=== PATIENT | male | born 1935 | race Caucasian/White ===

== ENCOUNTER 2021-07-28 14:05 | Emergency (ER) | payer MEDICARE, OTHER, SELFPAY ==
[~2021-07-28] VITALS: Ht 152.4 cm; Wt 43.1 kg
--- NOTE | 2021-07-28 14:07 | NUR ---
Placed in room 8 . Placed on shine worker, blood pressure machine and pulse oximeter. To gown for exam. Side rails up. Report given to DARI Mccarthy.
--- NOTE | 2021-07-28 14:10 | NUR ---
PT BIBA FROM [facility] FOR FEVER, RESPIRATORY DISTRESS. PER EMS PT WAS FOUND TO BE SATTING [place] 77%ON RA AIR ON SCENE AND MORE ALTERED THAN USUAL. PT WAS PLACED ON NRB @ 15LPM, ARRIVES @ 100%, 99.4 RECTAL TEMP, OTHER V/S STABLE. PT IS NONVERBAL UPON ARRIVAL, HOT TO TOUCH AND DIAPHROETIC. PT ARRIVES WITH #18G TO LAC PATENT AND NS BOLUS RUNNING.
[2021-07-28 14:13] VITALS: BP_SYST 146
--- NOTE | 2021-07-28 14:26 | NUR ---
# 20 gauge angiocath placed to LFA. Use of asceptic technique. Opsite placed over site. Blood return noted. Blood for lab drawn from site. Flushed with 10 cc of normal saline. No evidence of infiltration noted. Patient tolerated well.
--- NOTE | 2021-07-28 14:38 | NUR ---
RT AT THE BEDSIDE FOR ABG
[2021-07-28] MEDS ORDERED: IPRA4AER INH (14:41)
[2021-07-28] MEDS ORDERED: TROS20TA2 PO (14:41)
[2021-07-28] MEDS ORDERED: ACET325T53 PO (14:41)
[2021-07-28] MEDS ORDERED: CARB1CAP3 PO (14:41)
[2021-07-28] MEDS ORDERED: ONDA4TAB5 PO (14:41)
[2021-07-28] MEDS ORDERED: GABA-529 PO (14:41)
[2021-07-28] MEDS ORDERED: FINA5TAB3 PO (14:41)
[2021-07-28] MEDS ORDERED: FOLI0.8T42 PO (14:41)
[2021-07-28] MEDS ORDERED: ACET325T PO (14:41)
[2021-07-28] MEDS ORDERED: DOCU-144 PO (14:41)
[2021-07-28] MEDS ORDERED: DONE10TA44 PO (14:41)
[2021-07-28] MEDS ORDERED: ENTA200T2 PO (14:41)
[2021-07-28] MEDS ORDERED: ATRO5DRP PO (14:41)
[2021-07-28] MEDS ORDERED: HYT1 PO (14:41)
--- NOTE | 2021-07-28 14:41 | NUR ---
Medication reconciliation completed with information provided by [facility]. Any prior medication reconciliation on file was reviewed and corrected.
[2021-07-28] MEDS ORDERED: FERR-69 PO (14:47)
--- NOTE | 2021-07-28 14:49 | NUR ---
patient swabbed for covid. sample brought to lab.
[2021-07-28] MEDS ORDERED: NACL 0.9% 1,000 ML IV ONE (15:00)
[2021-07-28] MEDS ORDERED: NS 500 ML IV ONE (15:00)
[2021-07-28] MEDS ORDERED: PIPERACILLIN/TAZO 3.38 GM in D5W 50 ML IV ONE (15:00)
[2021-07-28] MEDS ORDERED: VANCOMYCIN HCL 1,000 MG in D5W 250 ML IV ONE (15:00)
[2021-07-28] MEDS ORDERED: PIPERACILLIN/TAZOBACTAM 3.375 GM/VIAL (ZOSYN) IV ONE (15:13)
[2021-07-28 15:28] LABS: BASOPHILS % (AUTO) 0.1 % (0.0-2.0); HEMATOCRIT 35.3 % (36-54); HEMOGLOBIN 11.9 g/dL (14.0-18.0); LYMPHOCYTES # (AUTO) 1.2 K/uL (1.0-5.5); LYMPHOCYTES % (AUTO) 11.4 % (20.5-51.5); MEAN CORPUSCULAR HEMOGLOBIN 28 pg (27-31); MEAN CORPUSCULAR HGB CONC 34 % (32-36); MEAN CORPUSCULAR VOLUME 83 fL (79.0-98.0); MONOCYTES # (AUTO) 0.6 K/uL (0.0-1.0); MONOCYTES % (AUTO) 5.4 % (1.7-9.3); NEUTROPHILS # (AUTO) 9.1 K/uL (1.8-7.7); NEUTROPHILS % (AUTO) 83.1 % (40.0-70.0); PLATELET COUNT (AUTO) 314 K/uL (130-430); RED BLOOD CELL COUNT(AUTO) 4.25 MIL/uL (4.2-6.2); RED CELL DISTRIBUTION WIDTH 17.3 % (9.0-15.0); WHITE BLOOD COUNT (AUTO) 10.9 K/uL (4.8-10.8)
[2021-07-28 15:38] LABS: ANION GAP 12 (5-15); CALCIUM 9.1 mg/dL (8.4-11.0); CHLORIDE 113 mmol/L (98-107); CREATININE 2.54 mg/dL (0.55-1.30); GLUCOSE 147 mg/dL (70-99); POTASSIUM 4.2 mmol/L (3.5-5.1); SODIUM SERUM 149 mmol/L (136-145)
[2021-07-28 15:47] LABS: ALANINE AMINOTRANSFERASE 8 U/L (12-78); ALBUMIN 2.4 g/dL (3.4-4.8); ASPARTATE AMINOTRANSFERASE 17 U/L (10-37); TOTAL BILIRUBIN 0.3 mg/dL (0.0-1.0)
[2021-07-28 15:48] LABS: INR 1.1 (0.80-1.20); PROTHROMBIN TIME 11.4 SECS (9.5-12.5)
[2021-07-28 15:52] LABS: UREA NITROGEN, BLOOD 101 mg/dL (8-21)
--- NOTE | 2021-07-28 16:10 | NUR ---
# 14 FR Mccloud catheter with use of sterile technique. Immediate return of 15 cc DARK YELLOW urine noted. Bedside drainage bag placed below level of bladder. Urine sample collected and sent to lab. Pt tolerated procedure WELL. Patient unable to toilet self.
[2021-07-28] MEDS ORDERED: VANCOMYCIN HCL 1000 MG/VIAL IV ONE (16:22)
[2021-07-28 16:49] LABS: BILIRUBIN,URINE NEGATIVE (NEGATIVE); BLOOD, URINE 1+ (NEGATIVE); COLOR,URINE YELLOW (YELLOW); GLUCOSE,URINE NEGATIVE (NEGATIVE); KETONES,URINE NEGATIVE (NEGATIVE); LEUKOCYTE ESTERASE ,URINE NEGATIVE (NEGATIVE); NITRITE, URINE NEGATIVE (NEGATIVE); PH,URINE 5.5 (5.0-8.0); PROTEIN URINE TRACE (NEGATIVE); UROBILINOGEN,URINE 0.2 (0.2-1.0)
[2021-07-28 16:55] LABS: CLARITY/URINE HAZY (CLEAR)
--- NOTE | 2021-07-28 16:55 | NUR ---
Patient transported to radiology via GURNEY, accompanied by STAFF.
[2021-07-28 17:41] LABS: BACTERIA,URINE FEW /HPF (None Seen); RBC,URINE 0-3 /HPF (0-3); WBC,URINE 0-3 /HPF (0-3)
[2021-07-28 17:42] LABS: FINE GRANULAR CASTS,URINE 0-10 /LPF (None Seen); MUCUS,URINE None Seen /LPF (None Seen); URINE AMORPHOUS URATE 2+ /HPF (None Seen)
--- NOTE | 2021-07-28 19:10 | NUR ---
REPORT GIVEN TO DARI HANSON FOR CONTINUING CARE
--- NOTE | 2021-07-28 19:30 | NUR ---
Awaiting for [place] to call re placement.Pt.awake/non-verbal/open eyes /tracking.moans when repositioned.IVF completed.S.Lock flushed /kept patent [id number]+LAC.
--- NOTE | 2021-07-28 20:00 | NUR ---
Bedside monitor show Afib HR maintained in90s and low 100.Bp controlled/stable.NAD. aware.Waiting for Ang placement.
--- NOTE | 2021-07-28 22:05 | NUR ---
/son of pt called via phone/inquiring re pt and Ang placement/spoke with .Pt.fairly stable.In no apparent resp distress.kept on 4L NC O2 sat maintained 97-99%.Partial bath rendered Mccloud kept intact/draining good amounts of yellow urine.Bedside monitor show HR-90s-low 100s.BP 166/66. Afebrile.Skin warm/dry.HS /pericare rendered.Repositioned.HOB up.Monitored closely.
--- NOTE | 2021-07-28 23:50 | NUR ---
Third call for report c given to Mable RN instead of Trey RN.[facility] left with pt/ in stable condition with SL to rt wrist and LAC/sites clear.Mccloud intact.
[2021-07-29 00:17] VITALS: BP_SYST 147
== END 2021-07-29 00:17 | disposition short-term general hospital (02) ==
LOC: SED 14:05
DX: A41.9 Sepsis, unspecified organism (principal); R65.20 Severe sepsis without septic shock; J18.9 Pneumonia, unspecified organism; E86.0 Dehydration; G93.49 Other encephalopathy; E87.0 Hyperosmolality and hypernatremia; N17.9 Acute kidney failure, unspecified; G20 Parkinson's disease; F02.80 Dementia in other diseases classified elsewhere, unspecified severity, without behavioral disturbance, psychotic disturbance, mood disturbance, and anxiety; I10 Essential (primary) hypertension; Z20.822 Contact with and (suspected) exposure to COVID-19; Y95 Nosocomial condition; Z88.8 Allergy status to other drugs, medicaments and biological substances; Z79.899 Other long term (current) drug therapy
CPT/HCPCS: 36415; 70450; 71045; 71250; 74176; 76376; 80053; 81000; 82803; 83605; 84484; 85025; 85610; 85730; 87040; 87086; 87426; 93005; 96365; 96366; 96367; 99291; J2543; J3370